=== PATIENT | male | born 1975 | race Caucasian/White ===

== ENCOUNTER → 2018-12-18 11:26 | Outpatient (CLI) | payer BC ==
[~2018-12-18 11:26] MED LIST: DEPAKOTE250 MG PO; LISINOPRIL20 MG PO; TRAZODONE HCL150 MG PO; ZOCOR10 MG PO; ZOLOFT50 MG PO
--- NOTE | 2018-12-25 11:41 | ST ---
PATIENT:JAVI HUTSON MEDICAL RECORD: [id number] SEX: M LOCATION:[facility] ORDER #: ADMISSION DATE: 12/18/18 AGE OF PATIENT: 43 REFERRING PHYSICIAN: INTERPRETING PHYSICIAN: ROXY MARK MD DATE OF SERVICE: 12/18/2018 Nuclear Stress Test INDICATIONS: Shortness of breath, hypertension. He was exercised on standard Lexiscan protocol with 33 mCi of sestamibi injected at peak stress, 11 mCi were used previously for rest images. FINDINGS: Gated SPECT reveals a dilated LV ejection fraction decreased at 44%, decreased thickening and brightening throughout the anterior segments. SPECT Imaging: Cardiolite was used as myocardial perfusion agent. There is a mixed perfusion defect anteriorly as well as inferiorly, partially fixed, partially reversible, compatible with previous myocardial infarctions as well as ongoing ischemia. This includes the basal, mid, apical anterior segments as well as basal apical inferior segments as well as the apex itself. OVERALL IMPRESSION: This is an intermediate risk nuclear stress test with mixed perfusion defects anteriorly as well as inferiorly, partially fixed, partially reversible. The amount of myocardium involved is large in this patient with no past history of myocardial infarction or coronary artery disease or cardiomyopathy, the current scan is quite concerning for hemodynamically significant multivessel coronary artery disease. TRANSINT:[id number] Voice Confirmation ID: [id number] DOCUMENT ID: [id number] ROXY MARK MD at 1141 CC: [id number] DICTATION DATE: 12/19/18 1216 DUMP TRUCK OPERATOR: 12/20/18 0117 DEP CLI 12/18/18 [place] [address]
[2018-12-28 10:01] VITALS: BMI 37.4
== END | disposition home or self-care (01) ==
LOC: D.HCCARDIO 11:26
PROVIDERS: ATTEND Internal Medicine Interventional Cardiology
DX: R06.02 Shortness of breath (principal)

== ENCOUNTER 2018-12-28 08:34 | Outpatient (CLI) | payer MEDICAID ==
[~2018-12-28] VITALS: Ht 182.9 cm; Wt 125.0 kg
--- NOTE | ~2018-12-28 | HEMODYNAMI ---
PATIENT:JAVI HUTSON MEDICAL RECORD: [id number] : 75 LOCATION:[facility] ADMISSION DATE: 12/28/18 Generatedon:12/28/201812:00 Patient name: JAVI HUTSON Patient #: [id number] SSN: : 1975 Date of study: 12/28/2018 Page: Of Hemodynamic Procedure Report Patient Data Patient Demographics Procedure consent was obtained First Name: JAVI Gender: Male Last Name: HARESH : 1975 Patient #: [id number] Age: 43 year(s) Race: Unknown Additional ID: [id number] Contact details Address: [place] [address] State: [place] City: [place] Zip code: [address] Admission Admission Data Admission Date: 12/28/2018 Admission Time: 8:34 Height (in.): 72 BSA: 2.44 (m2) Height (cm.): 182.88 BMI: 37.37 (kg/m2) Weight (lbs.): 275.58 Weight (kg.): 125 Lab Results Lab Result Date: 12/28/2018 Lab Result Time: 0:00 Biochemistry Name Units Result Min Max BUN mg/dl 8 --(*---)-- 7 18 Creatinine mg/dl 0.8 --(-*--)-- 0.6 1.3 eGFR ml/min 90 --(*---)-- 90 120 NONAFRICAN CBC Name Units Result Min Max Hemoglobin g/dl 14.8 --(-*--)-- 13.5 17.5 Procedure Procedure Types Cath Procedure Diagnostic Procedure C [facility] w/Coronaries Procedure Description Procedure Date Procedure Date: 12/28/2018 Procedure Start Time: 11:43 Procedure End Time: 11:58 Procedure Staff Name Function Sin Hwang MD Performing Physician Carlos Cummings RT Monitor Noe Wetzel RN Nurse Carmen Hernandez RN Nurse Tori House RT Scrub Procedure Data Cath Procedure Fluoroscopy Diagnostic fluoroscopy Total fluoroscopy Time: 3.7 time: 3.7 min min Diagnostic fluoroscopy Total fluoroscopy dose: 876 dose: 876 mGy mGy Contrast Material Contrast Material Type Amount (ml) Isovue 300 67 Entry Location Entry Primary Successful Side Size Upsize Upsize Entry Closure Velasquez ccessful Closure Location (Fr) 1 (Fr) 2 (Fr) Remarks Device Remarks Radial Right 6 Fr Mechanical artery Short Compression Estimated blood loss: 10 ml Diagnostic catheters Device Type Used For End Catheter Placement DIAGNOSTIC [place] 110cm 5 Procedure Fr catheter ([id number]) DIAGNOSTIC AR2 MOD 5 Fr Procedure catheter ([id number]) Procedure Complications No complications Procedure Medications Medication Administration Route Dosage Oxygen etCO2 Nasal cannula 2 l/min Lidocaine 2% added to field 20 Heparin Flush Bag added to field 2 bags (1000units/500ml NS) 0.9% NaCl I.V. 100 ml/hr Radial Cocktail I.A. 1 syringe (Verapamil 2mg/Nitro 400mcg/Heparin 1500units) Versed I.V. 2 mg Fentanyl I.V. 100 mcg Versed I.V. 2 mg Fentanyl I.V. 100 mcg Hemodynamics Rest BSA: 2.44 (m2) HGB: 14.8 (g/dl) O2 Consumption: Estimated: 293.28 (ml/min) O2 Co nsumption indexed: Estimated:120.2 (ml/min/m) Heart Rate: 67 (bpm) Snapshots Pre Cath Intra NCS Post Cath Vital Signs Time Heart Resp SPO2 etCO2 NIBP (mmHg) Rhythm Pain Sedation Rate (ipm) (%) (mmHg) Status Level (bpm) 11:23:19 66 12 92 19.7 102/54(76) NSR 0 (11) 10(A) , No pain 11:27:19 87 18 95 44 113/76(101) NSR 0 (11) 10(A) , No pain 11:31:29 72 10 96 38.7 92/53(69) NSR 0 (11) 10(A) , No pain 11:35:29 71 11 96 41 103/66(87) NSR 0 (11) 10(A) , No pain 11:39:33 72 11 96 41 95/66(91) NSR 0 (11) 10(A) , No pain 11:43:30 74 11 95 23.5 102/72(83) NSR 0 (11) 9(A) , No pain 11:47:34 72 10 96 44 117/64(89) NSR 0 (11) 9(A) , No pain 11:51:48 78 11 95 41.7 96/42(63) NSR 0 (11) 9(A) , No pain 11:55:51 78 11 95 34.9 103/51(81) NSR 0 (11) 10(A) , No pain Medications Time Medication Route Dose Verified Delivered Reason Notes Effectiveness by by 11:21:48 Oxygen etCO2 2 l/min Sinsergio Cortesie used for Nasal Jaiden Hernandez RN procedure cannula 11:21:55 Lidocaine 2% added 20ml Sin Sin for local to vial Jaiden Hwang MD anesthetic field 11:22:02 Heparin Flush added 2 bags Sin Vogt used for Bag to Jaiden Hwang MD procedure (1000units/500ml field NS) 11:26:51 0.9% NaCl I.V. 100 Sinsergio Morales Per ml/hr Jaiden Hernandez RN physician 11:41:09 Versed I.V. 2 mg Sin Morales for sedation Jaiden Hernandez RN 11:41:16 Fentanyl I.V. 100 mcg Sin Morales for sedation Jaiden Hernandez RN 11:49:13 Radial Cocktail I.A. 1 Sin Sin for (Verapamil syringe Jaiden Hwang MD vasodilation 2mg/Nitro 400mcg/Heparin 1500units) 11:50:30 Versed I.V. 2 mg Sin Cortesie for sedation Jaiden Hernandez RN 11:50:34 Fentanyl I.V. 100 mcg Sin Morales for sedation Jaiden Hernandez RN Procedure Log Time Note 11:00:25 Noe Wetzel RN sent for patient. Start room use. 11:12:26 Time tracking: Regular hours (M-F 7:00 - 5:00) 11:12:30 Plan of Care:Hemodynamics will remain stable., Cardiac rhythm will remain stable., Comfort level will be maintained., Respiratory function will remain adequate., Patient/ family verbilizes understanding of procedure., Procedure tolerated without complication., Recovers from procedure without complications.. 11:12:43 Patient received from Pre/Post Procedure Room to CCL 2 Alert and oriented. Tansferred to table in Supine position. 11:12:46 Signed procedure consent form obtained from patient. 11:12:47 Warm blankets applied, and elder hugger turned on for patient comfort. 11:12:48 Correct patient and procedure confirmed by team. 11:12:48 ECG and BP/O2 sat monitors applied to patient. 11:21:48 Oxygen 2 l/min etCO2 Nasal cannula was administered by Carmen Hernandez RN; used for procedure; Verbal order read back and verified. 11:21:55 Lidocaine 2% 20ml vial added to field was administered by Sin Hwang MD; for local anesthetic; Verbal order read back and verified. 11:22:02 Heparin Flush Bag (1000units/500ml NS) 2 bags added to field was administered by Sin Hwang MD; used for procedure; Verbal order read back and verified. 11:22:16 Vital chart was started 11:22:17 Baseline sample Acquired. 11:22:21 Rhythm: sinus rhythm 11:22:22 Full Disclosure recording started 11:22:43 H&P Date Dictated: 11/27/2018 Within 30 days and on chart., H&P Addendum completed by physician on day of procedure. (MUST COMPLETE FOR ALL OUTPATIENTS). 11:22:44 Pre-procedure instructions explained to patient. 11:22:44 Pre-op teaching completed and patient verbalized understanding. 11:22:46 Family in patients room. 11:22:47 Patient NPO since Midnight. 11:22:48 Is the patient allergic to Iodine/contrast media? No. 11:22:49 Is patient on blood thinner?No 11:22:53 ACC The patient was administered the following blood thiners within the last 24 hours: None 11:22:57 Patient diabetic? No. 11:22:59 Previous problem with sedation/anesthesia? No ? 11:22:59 Snore? Yes 11:23:00 Sleep apnea? Yes 11:23:01 Deviated septum? No 11:23:02 Opens mouth fully? Yes 11:23:02 Sticks out tongue? Yes 11:23:04 Airway obstruction? No ? 11:23:06 Dentures? No ? 11:23:10 Pre procedure: right dorsailis pedis pulse 1+ Palpable, but thready & weak; easily obliterated 11:23:11 Modified Osmel's test Ulnar < 7 seconds 11:23:13 Patient pain scale 0/10 ?. 11:23:18 IV patent on arrival in right forearm with 0.9% NaCl at [facility]. 11:23:22 Lab results completed and on chart. 11:23:37 Stress Test: yes; abnormal anterior and inferior 11:23:39 Risk of Mortality: 0.1 11:23:42 Risk of blood transfusion: 0.1 11:23:44 Risk of TIERNEY: 0.1 11:23:48 Right groin area was prepped with chlora-prep and draped in sterile fashion 11:23:50 Alarms reviewed by R. N. 11:23:50 Sharps counted by scrub and verified by R.N. 11:23:53 Use device set Radial Dx or PCI 11:23:54 Tegaderm 4 x 4 (1626W) opened to sterile field. 11:23:55 ACIST Manifold (66350) opened to sterile field. 11:23:55 ACIST Hand Control (86113) opened to sterile field. 11:23:56 Bag Decanter (2002S) opened to sterile field. 11:23:56 Medline Cath Pack ([id number]) opened to sterile field. 11:23:57 ACIST Syringe (61978) opened to sterile field. 11:23:59 MBrace Wrist Support (906561560) opened to sterile field. 11:24:00 EMERALD Guide Wire (162-908) opened to sterile field. 11:24:01 SHEATH 6FR RAIN (9684051) opened to sterile field. 11:26:51 0.9% NaCl 100 ml/hr I.V. was administered by Carmen Hernandez RN; Per physician; Verbal order read back and verified. 11:27:26 Lab Result : Creatinine 0.8 mg/dl 11::26 Lab Result : BUN 8 mg/dl 11::26 Lab Result : Hemoglobin 14.8 g/dl 11::26 Lab Result : eGFR NONAFRICAN 90 ml/min 11:29:51 Patient Height : 72 inches 11:29:54 Patient Weight : 275.58 lbs 11:32:22 Physician paged 11:40:40 Physician arrived 11:40:41 --------ALL STOP TIME OUT------ 11:40:41 Final Timeout: patient, procedure, and site verified with staff and physician. All members of the team are in agreement. 11:40:44 Right groin site verified by team. 11:40:51 Fire Safety Assessment: A--An alcohol-based skin anteseptic being used preoperatively., C--Open oxygen or nitrous oxide is being used., D--An ESU, laser, or fiber-optic light is being used. 11:40:54 Physical assessment completed. ASA score P 2 - A patient with mild systemic disease as per Sin Hwang MD. 11:40:56 1) 90+ Normal kidney functon but urine findings or structural abnormalities or genetic trait point to kidney disease. 11:40:59 Maximum allowable contrast dose (3.7 X eGFR X 0.75)250 ml. 11:41:04 Sedation plan: IV Moderate Sedation Medication:Versed, Fentanyl 11:41:09 Versed 2 mg I.V. was administered by Carmen Hernandez RN; for sedation; Verbal order read back and verified. 11:41:16 Fentanyl 100 mcg I.V. was administered by Carmen Hernandez RN; for sedation; Verbal order read back and verified. 11:43:02 Procedure started. 11:43:08 Local anesthetic to right radial artery with Lidocaine 2% by Sin Hwang MD.INITIAL ACCESS ONLY 11:46:20 Wire damaged while attempting access, new sheath opened. 11:46:26 SHEATH 6FR ARIELLE (2466671) opened to sterile field. 11:48:04 A 6 Fr Short sheath was inserted into the Right Radial artery 11:48:11 A DIAGNOSTIC [place] 110cm 5 Fr catheter (304920) was advanced over the wire and used for Procedure. 11:49:13 Radial Cocktail (Verapamil 2mg/Nitro 400mcg/Heparin 1500units) 1 syringe I.A. was administered by Sin Hwang MD; for vasodilation; Verbal order read back and verified. 11:49:21 Zero performed for pressure channel P1 11:50:07 LV angiography performed. 11:50:08 LV gram done using PETERSON 11:50:13 EF : 55 % 11:50:17 Injector settings: Ml/sec: 5, Volume: 15, 11:50:30 Versed 2 mg I.V. was administered by Carmen Hernandez RN; for sedation; Verbal order read back and verified. 11:50:34 Fentanyl 100 mcg I.V. was administered by Carmen Hernandez RN; for sedation; Verbal order read back and verified. 11:51:10 Unable to cannulate coronaries. Catheter removed over the wire. 11:51:46 A DIAGNOSTIC AR2 MOD 5 Fr catheter ([id number]) was advanced over the wire and used for Procedure. 11:52:46 RCA angiography performed. 11:52:55 Catheter exchanged over wire. 11:53:37 6 Fr XBLAD 3.5 SH guide catheter was inserted over the wire 11:54:11 LCA angiography performed. 11:54:14 ACCDominant side:Left 11:54:37 GUIDE 6FR XBLAD 3.5 SH catheter (79386912) opened to sterile field. 11:55:28 TR BAND Large ([id number]) opened to sterile field. 11:55:49 Catheter removed. 11:56:03 Sheath removed intact; hemostasis achieved with Mechanical Compression to the Right Radial artery. 11:56:05 Procedure ended.(Physican Out) 11:56:29 Fluoroscopy time 03.70 minutes. 11:56:32 Fluoroscopy dose: 876 mGy 11:56:32 Flurop Dose total: 876 11:56:37 Dose Area Product 33789 mGy/cm. 11:56:40 Contrast amount:Isovue 300 67ml. 11:56:42 Maximum allowable dose exceeded? No. 11:56:43 Sharps counted by scrub and verified by R.N. 11:56:48 Insertion/operative site no bleeding no hematoma. 11:56:50 Post Procedure Pulses reassessed and unchanged 11:56:54 Post-procedure physical assessment completed. ASA score P 2 - A patient with mild systemic disease as per Sin Hwang MD. 11:56:56 Post procedure rhythm: unchanged. 11:56:58 Estimated blood loss: 10 ml 11:56:59 Post procedure instruction explained to patient.Patient verbalizes understanding. 11:57:00 Patient needs reinforcement of post procedure teaching. 11:57:05 Procedure and supply charges have been captured, reviewed, submitted and are correct. 11:57:07 Procedure Complication : No complications 11:57:49 [facility] Findings: mild to moderate CAD (<70%) 11:57:52 Operative report dictated upon procedure completion. 11:57:52 See physician's report for complete and final results. 11:58:18 Vital chart was stopped 11:58:26 Report given to Pre/Post Procedure Room. 11:58:28 Patient transfered to Pre/Post Procedure Room with Stretcher. 11:58:30 Procedure ended. 11:58:30 Full Disclosure recording stopped 12:00:00 End room use (Document Last) Device Usage Item Name Manufacture Quantity Catalog Hospital Part Current Minima l Lot# / Number Charge Number Stock Stock Serial# Code Tegaderm 4 3M 1 1626W [id number] [id number] 5 x 4 (1626W) ACIST Acist 1 02906 492255 920164 585850 5 Manifold Medical (88989) Systems Inc ACIST Hand Acist 1 08761 155588 855336 605662 5 Control Medical (68009) Systems Inc Bag Microtek 1 2001S 374475 98930 764481 5 Decanter Medical Inc. (2001S) Medline Medline 1 [id number] 670301 54089 622626 5 Cath Pack ([id number]) ACIST Acist 1 32130 240941 966269 542791 20 Syringe Medical (88799) Systems Inc MBrace Advanced 1 140-0250-00 928220 53679 963952 5 Wrist Vascular Support Dynamics ([id number]) EMERALD Cardinal 1 502-455 153339 349895 079387 5 Guide Wire Health (502-455) SHEATH 6FR Cardinal 2 1998134 765160 9136317 812916 5 [facility] (9626415) DIAGNOSTIC Terumo 1 40-5013 610439 672367 136950 5 [place] 110cm 5 Fr catheter (082073) DIAGNOSTIC Cardinal 1 [id number] 097815 889372 395021 20 AR2 MOD 5 Health Fr catheter (919423Z) GUIDE 6FR Cardinal 1 [id number] 063258 454899 333969 3 XBLAD 3.5 Health SH catheter (23788360) TR BAND Terumo 1 DIS41-XTY 377928 449818 650380 40 Large ([id number]) Signature Audit [place] Stage Time Signature Unsigned Intra-Procedure 12/28/2018 Carlos Cummings 11:58:47 AM RT(R) Intra-Procedure 12/28/2018 Carmen Hernandez RN 11:59:26 AM Intra-Procedure 12/28/2018 Sin Hwang 12:00:55 PM MD Signatures Performing Physician : Signature : Sin Hwang MD Date : Time : Monitor : Carlos Cummings RT Signature : Date : Time : Nurse : Noe Lorigan Signature : RN Date : Time : Nurse : Carmen Hernandez RN Signature : Date : Time : [address] [place] [address]
[2018-12-28] MEDS ORDERED: TRAZODONE HCL150 MG PO (09:35)
[2018-12-28] MEDS ORDERED: ZOLOFT50 MG PO (09:36)
[2018-12-28] MEDS ORDERED: LISINOPRIL20 MG PO (09:36)
[2018-12-28] MEDS ORDERED: DEPAKOTE250 MG PO (09:36)
[2018-12-28] MEDS ORDERED: ZOCOR10 MG PO (09:37)
[2018-12-28 09:55] LABS: BASOPHILS 0.1 % (0-2); EOSINOPHILS 1.2 % (0-7); HEMATOCRIT 44.4 % (42.0-54.0); HEMOGLOBIN 14.8 g/dL (13.5-17.5); IMMATURE GRANULOCYTES 0.8 % (0-5); LYMPHOCYTES 21.2 % (15-50); MCH 29.1 pg (26.0-34.0); MCHC 33.3 g/dL (31.0-37.0); MCV 87.2 fL (80.0-100.0); MEAN PLATELET VOLUME 9.8 fL (7.4-10.4); MONOCYTES 9.6 % (2-11); NEUTROPHILS 67.1 % (40-80); PLATELET COUNT 246 10x3/uL (130-400); RBC 5.09 10x6/uL (4.20-6.10); RDW 13.3 % (11.5-14.5); WBC 7.8 10x3/uL (4.8-10.8)
[2018-12-28 10:01] VITALS: BP 124/58; Ht 182.9 cm; Wt 125.0 kg
[2018-12-28 10:10] LABS: CALC OSMOLALITY 278 mosm/kg (275-300); CALCIUM 8.9 mg/dL (8.5-10.1); CARBON DIOXIDE 27.8 mmol/L (21.0-32.0); CHLORIDE - SERUM 105 mmol/L (98-107); CREATININE - SERUM 0.8 mg/dL (0.6-1.3); GLUCOSE 95 mg/dL (74-106); SODIUM 141 mmol/L (136-145); UREA NITROGEN 8 mg/dL (7-18); eGFR NON AFRICAN AMERICAN > 90 mL/min (90-120)
[2018-12-28 10:11] LABS: POTASSIUM - SERUM 4.7 mmol/L (3.5-5.1)
[2018-12-28 10:23] LABS: ALT (SGPT) 47 U/L (10-68); CHOL - HDL RATIO 6.1 ratio (2.3-4.9); CHOLESTEROL, TOTAL 194 mg/dL (0-200); HDL CHOLESTEROL 32 mg/dL (32-96); LDL CHOLESTEROL 121 mg/dL (0-100); LDL-HDL RATIO 3.8 ratio (1.5-3.5); TRIGLYCERIDE 207 mg/dL (30-200)
--- NOTE | 2018-12-28 12:10 | NUR ---
PT ARRIVED BY STRETCHER. PLACED ON MONITOR. ASSESSMENT COMPLETED. VSS. FAMILY AT BEDSIDE. CALL LIGHT WITHIN REACH.
--- NOTE | 2018-12-28 12:25 | NUR ---
RIGHT WRIST DRESSING C/D/I. NO S/S OF HEMATOMA NOTED. CALL LIGHT WITHIN REACH. VSS. RESTING COMFORTABLY AT THIS TIME.
--- NOTE | 2018-12-28 13:00 | NUR ---
2cc OF AIR REMOVED FROM TR BAND. TOLERATED WELL. VSS. CALL LIGHT WITHIN REACH. FAMILY AT BEDSIDE. NO BLEEDING/HEMATOMA NOTED.
--- NOTE | 2018-12-28 13:15 | NUR ---
4cc OF AIR REMOVED FROM TR BAND. NO BLEEDING/HEMATOMA NOTED. CALL LIGHT WITHIN REACH. FAMILY AT BEDSIDE.
--- NOTE | 2018-12-28 13:30 | NUR ---
4cc OF AIR REMOVED FROM TR BAND. NO BLEEDING/HEMATOMA NOTED.
--- NOTE | 2018-12-28 13:45 | NUR ---
TR BAND REMOVED. NO BLEEDING/HEMATOMA NOTED. CALL LIGHT WITHIN REACH. VSS. PIV D/C'D WITH CATH TIP INTACT. PT INSTRUCTED TO GET UP AND DRESSED. FAMILY AT BEDSIDE TO ASSIST.
--- NOTE | 2018-12-28 14:00 | NUR ---
PT AMBULATED TO RESTROOM. VOIDED WITHOUT DIFFICULTY. BACK TO ROOM. DISCUSSED DISCHARGE INSTRUCTIONS WITH PT AND PT'S FRIEND. THEY VOICED UNDERSTANDING.
--- NOTE | 2018-12-28 14:05 | NUR ---
PT REFUSED WHEELCHAIR. AMBULATED TO VEHICLE. NO S/S OF DISTRESS NOTED. ALL BELONGINGS AND PAPERWORK IN HAND.
--- NOTE | 2019-01-02 14:07 | OP ---
PATIENT NAME: JAVI HUTSON MEDICAL RECORD: [id number] :75 LOCATION:[facility] ADMISSION DATE: SURGEON: ROXY MARK MD DATE OF OPERATION: 12/28/2018 PROCEDURES: 1. Left heart catheterization. 2. Selective coronary angiography. 3. Left ventriculogram. INDICATION: Chest pain, abnormal nuclear stress test. PROCEDURE IN DETAIL: After informed consent was obtained and after a detailed description of the risks, benefits as well as alternative therapies, the patient elected to proceed with angiogram and heart catheterization. The right radial area was prepped and draped in normal sterile fashion. Right radial artery was cannulated via modified Seldinger technique with placement of 5-Setswana sheath. All catheters exchanged through this sheath. FINDINGS: Left ventriculogram was performed in standard 30-degree PETERSON view, reveals good cardiac wall motion, ejection fraction estimated 60%. SELECTIVE CORONARY ANGIOGRAPHY: Left main, left anterior descending, left circumflex, right coronary artery are all smooth-walled vessels with no angiographic evidence of coronary artery disease. OVERALL IMPRESSION: 1. No angiographic evidence of coronary artery disease. 2. Normal left heart pressures. 3. Normal left ventricular systolic function. Chest pain is noncardiac in etiology. Stress test is false positive. TRANSINT:[id number] Voice Confirmation ID: [id number] DOCUMENT ID: [id number] ROXY MARK MD at 1407 CC: [id number] DICTATION DATE: 12/28/18 1158 FROG SHAKER: 12/28/18 1204 DEP CLI 12/28/18 [place] [id number]
== END 2018-12-28 14:05 | disposition home or self-care (01) ==
LOC: D.CATH 08:34
PROVIDERS: ATTEND Internal Medicine Interventional Cardiology
DX: R07.9 Chest pain, unspecified (principal); R94.30 Abnormal result of cardiovascular function study, unspecified